=== PATIENT | female | born 1985 | race Caucasian/White ===

== ENCOUNTER 2020-04-17 09:59 | Outpatient (REF) | payer OTHER, SELFPAY ==
[2020-04-17 11:57] LABS: Alanine Aminotransferase 14 U/L (0-31); Anion Gap 14 (12-20); Aspartate Amino Transferase 16 U/L (5-31); Blood Urea Nitrogen 12 mg/dL (9-16); Calcium 9.3 mg/dL (8.4-10.2); Carbon Dioxide 24 mmol/L (22-29); Chloride 107 mmol/L (96-108); Cholesterol 163 mg/dL; Estimated Glomerular Filt Rate > 60; Glucose Fasting 87 mg/dL (60-99); HDL Cholesterol 39 mg/dL; LDL Cholesterol Calculated 109 mg/dl; Potassium 4.5 mmol/l (3.3-5.1); Sodium 140 mmol/L (135-145); Triglycerides 76 mg/dL
[2020-04-17 12:21] LABS: TSH reflex Free T4 0.85 mIU/mL (0.32-4.0)
== END 2020-04-17 10:00 | disposition home or self-care (01) ==
LOC: HO.HMGCLDS 09:59
PROVIDERS: PCP Internal Medicine; Visit Provider Internal Medicine
DX: N94.6 Dysmenorrhea, unspecified (principal); J45.20 Mild intermittent asthma, uncomplicated; J30.2 Other seasonal allergic rhinitis; I10 Essential (primary) hypertension; Z86.39 Personal history of other endocrine, nutritional and metabolic disease
CPT/HCPCS: 80048; 80061; 84443; 84450; 84460

== ENCOUNTER 2020-04-23 15:55 | Outpatient (REF) | payer OTHER, SELFPAY | END 2020-04-23 15:56 | disposition home or self-care (01) | LOC: HO.LNP 15:55 | PROVIDERS: Visit Provider Nurse Practitioner Family | DX: Z20.828 Contact with and (suspected) exposure to other viral communicable diseases (principal) | CPT/HCPCS: 87635 ==

== ENCOUNTER 2020-11-06 07:57 | Outpatient (REF) | payer OTHER, SELFPAY ==
--- NOTE | 2020-11-06 17:09 | PFT_ITS ---
Forced vital capacity normal. FEV1 is slightly decreased. ODW17-39 moderately decreased and MVV slightly decreased. Post bronchodilator therapy, there is a significant response and all values are corrected to normal. Total lung capacity and residual volume are moderately increased. Diffusion capacity normal. CONCLUSION: [id number] degree of obstructive airway disorder. Complete reversibility after bronchodilator therapy. These findings are consistent with bronchial asthma. Clinical correlation recommended. MD DAMARIS Brothers/EDMUND / [id number]
== END 2020-11-06 07:58 | disposition home or self-care (01) ==
LOC: HO.RESP 07:57
PROVIDERS: PCP Internal Medicine; Visit Provider Internal Medicine
DX: J45.20 Mild intermittent asthma, uncomplicated (principal); F17.200 Nicotine dependence, unspecified, uncomplicated
CPT/HCPCS: 94060; 94727; 94729

== ENCOUNTER 2020-11-20 12:57 | Outpatient (REF) | payer OTHER, SELFPAY ==
--- NOTE | 2020-11-20 | PFT_ITS ---
SPIROMETRY: FEV1 of 98% of predicted at 3.20 L. FVC 126% of predicted at 5.04 L. FEV1 to FVC ratio of 0.64. No bronchodilator response. Methacholine challenge: The patient had significant decreased in FEV1 with administration of methacholine at 4mg/ml, which is consistent with underlying reactive airway disease. IMPRESSION: No obstructive ventilatory defect. No bronchodilator response. Positive methacholine challenge test consistent with underlying reactive airway disease or asthma. Clinical correlation is advised. MD FELIPA Lima/MODL / [id number] MTDD
== END 2020-11-20 12:58 | disposition home or self-care (01) ==
LOC: HO.RESP 12:57
PROVIDERS: PCP Internal Medicine; Visit Provider Internal Medicine
DX: J45.20 Mild intermittent asthma, uncomplicated (principal); F17.200 Nicotine dependence, unspecified, uncomplicated
CPT/HCPCS: 94070

== ENCOUNTER 2020-12-11 15:05 | Outpatient (REF) | payer OTHER, SELFPAY ==
--- NOTE | ~2020-12-11 | XR_ITS ---
EXAMINATION: XR CHEST CLINICAL INFORMATION: Chest pain. COMPARISON: None TECHNIQUE: 2 views of the chest were obtained. FINDINGS: No significant abnormality is noted involving the heart, lungs, mediastinum, bony thorax or soft tissues. XR/XR chest 2V IMPRESSION: No acute cardiopulmonary process.
[2020-12-11 16:51] LABS: MANUAL DIFF FLAG NO
[2020-12-11 16:54] LABS: Basophils Percent Auto 0.4 % (0-2); Eosinophils Absolute Auto 0.1 X10*3/uL (0.0-0.4); Eosinophils Percent Auto 1.1 % (0-4); Hematocrit 42.2 % (37-47); Hemoglobin 14.4 g/dl (12.0-16.0); Imm Gran Abs Auto 0.03 X10*3/uL (0.00-0.03); Imm Gran Pct Auto 0.4 % (0.0-0.4); Lymphocytes Absolute Auto 2.5 X10*3/uL (1.2-4.9); Lymphocytes Percent Auto 35.2 % (20-40); Mean Corpuscular HGB Conc 34.1 g/dl (31.0-35.0); Mean Corpuscular Hemoglobin 29.9 pg (27.0-33.0); Mean Corpuscular Volume 87.7 fL (80-98); Mean Platelet Volume 10.4 fL (9.4-12.3); Monocytes Absolute Auto 0.4 X10*3/uL (0.1-1.2); Monocytes Percent Auto 5.3 % (2-11); Neutrophils Absolute Auto 4.1 X10*3/uL (2.0-8.3); Neutrophils Percent Auto 57.6 % (45-73); Platelet Count 294 X10*3/uL (160-400); Red Blood Count 4.81 X10*6/uL (4.20-5.50)
[2020-12-11 17:09] LABS: D Dimer < 200 NG/ML
[2020-12-11 17:14] LABS: Anion Gap 12 (12-20); Blood Urea Nitrogen 10 mg/dL (9-16); Calcium 9.1 mg/dL (8.4-10.2); Carbon Dioxide 24 mmol/L (22-29); Chloride 109 mmol/L (96-108); Estimated Glomerular Filt Rate > 60; Glucose Random 88 mg/dL (60-115); Potassium 3.9 mmol/L (3.3-5.1); Sodium 141 mmol/L (135-145)
== END 2020-12-11 15:06 | disposition home or self-care (01) ==
LOC: HO.HMGCX 15:05
PROVIDERS: PCP Internal Medicine; Visit Provider Nurse Practitioner Family
DX: R07.9 Chest pain, unspecified (principal)
CPT/HCPCS: 36415; 71046; 80048; 85025; 85379

== ENCOUNTER 2021-07-29 11:55 | Outpatient (REF) | payer OTHER, SELFPAY ==
[2021-07-29 13:49] LABS: MANUAL DIFF FLAG NO
[2021-07-29 14:06] LABS: Basophils Percent Auto 0.3 % (0-2); Eosinophils Absolute Auto 0.1 X10*3/uL (0.0-0.4); Hematocrit 41.9 % (37.0-47.0); Hemoglobin 14.3 g/dl (12.0-16.0); Imm Gran Abs Auto 0.03 X10*3/uL (0.00-0.03); Imm Gran Pct Auto 0.3 % (0.0-0.4); Lymphocytes Absolute Auto 3.1 X10*3/uL (1.2-4.9); Lymphocytes Percent Auto 34.8 % (20-40); Mean Corpuscular HGB Conc 34.1 g/dl (31.0-35.0); Mean Corpuscular Hemoglobin 30.1 pg (27.0-33.0); Mean Corpuscular Volume 88.2 fL (80.0-98.0); Mean Platelet Volume 11.3 fL (9.4-12.3); Monocytes Absolute Auto 0.6 X10*3/uL (0.1-1.2); Monocytes Percent Auto 6.6 % (2-11); Platelet Count 291 X10*3/uL (160-400); Red Blood Count 4.75 X10*6/uL (4.20-5.50); White Blood Count 8.8 X10*3/uL (4.8-10.8)
[2021-07-29 14:40] LABS: Alanine Aminotransferase 13 U/L (0-31); Anion Gap 14 (12-20); Aspartate Amino Transferase 15 U/L (5-31); Blood Urea Nitrogen 10 mg/dL (9-16); Calcium 9.9 mg/dL (8.4-10.2); Carbon Dioxide 22 mmol/L (22-29); Chloride 108 mmol/L (96-108); Cholesterol 129 mg/dL; Estimated Glomerular Filt Rate > 60; Glucose Fasting 93 mg/dL (60-99); HDL Cholesterol 41 mg/dL; LDL Cholesterol Calculated 64 mg/dl; Potassium 3.9 mmol/L (3.3-5.1); Sodium 140 mmol/L (135-145); Triglycerides 122 mg/dL
[2021-07-29 15:04] LABS: Free T4 (Free Thyroxine) 1.03 ng/dL (0.71-1.85); Thyroid Stimulating Hormone 1.72 uIU/mL (0.32-4.0); Vitamin D 25-OH Total 28.5 ng/mL (>30)
== END 2021-07-29 11:56 | disposition home or self-care (01) ==
LOC: HO.HMGCLDS 11:55
PROVIDERS: PCP Internal Medicine; Visit Provider Internal Medicine
DX: Z00.01 Encounter for general adult medical examination with abnormal findings (principal); F17.200 Nicotine dependence, unspecified, uncomplicated; J30.2 Other seasonal allergic rhinitis; J45.20 Mild intermittent asthma, uncomplicated; N30.10 Interstitial cystitis (chronic) without hematuria; N94.6 Dysmenorrhea, unspecified; E03.9 Hypothyroidism, unspecified; Z90.09 Acquired absence of other part of head and neck
CPT/HCPCS: 36415; 80048; 80061; 82306; 84439; 84443; 84450; 84460; 85025

== ENCOUNTER 2022-01-31 10:42 | Outpatient (REF) | payer BC, SELFPAY ==
[2022-01-31 14:25] LABS: C Reactive Protein 0.05 mg/dL (< or = 0.50)
[2022-01-31 14:52] LABS: Folate 9.4 ng/mL (> or = 4.0); Vitamin B12 273 pg/mL (200-900)
[2022-02-01 13:28] LABS: H Pylori Breath Test Negative (Negative)
[2022-02-01 17:32] LABS: Transglutaminase Ab IgG <1.0 U/mL; Transglutaminase IgA <1.0 U/mL
== END 2022-01-31 10:43 | disposition home or self-care (01) ==
LOC: HO.HMGCLDS 10:42
PROVIDERS: PCP Internal Medicine; Visit Provider Nurse Practitioner Family
DX: R10.9 Unspecified abdominal pain (principal); K58.9 Irritable bowel syndrome, unspecified; R19.7 Diarrhea, unspecified
CPT/HCPCS: 36415; 82607; 82746; 83013; 86140; 86364

== ENCOUNTER 2022-02-15 08:54 | Outpatient (REF) | payer BC, SELFPAY ==
[2022-02-20 20:12] LABS: Calprotectin, Fecal 54 mcg/g
== END 2022-02-15 08:55 | disposition home or self-care (01) ==
LOC: HO.HMGCLDS 08:54
PROVIDERS: PCP Internal Medicine; Visit Provider Nurse Practitioner Family
DX: R10.9 Unspecified abdominal pain (principal)
CPT/HCPCS: 83993

== ENCOUNTER 2022-05-04 09:18 | Outpatient (REF) | payer BC, SELFPAY ==
[2022-05-04 12:02] LABS: Alanine Aminotransferase 12 U/L (0-31); Albumin Level 4.7 g/dL (3.5-5.0); Alkaline Phosphatase 64 U/L (39-117); Aspartate Amino Transferase 14 U/L (5-31); Bilirubin Direct 0.2 mg/dL (0.0-0.5); Bilirubin Total 0.2 mg/dL (0.0-1.0); Lipase 48 U/L (8-78); Total Protein 7.1 g/dL (6.5-8.0)
== END 2022-05-04 09:19 | disposition home or self-care (01) ==
LOC: HO.HMGCLDS 09:18
PROVIDERS: PCP Internal Medicine; Visit Provider Nurse Practitioner Family
DX: R10.9 Unspecified abdominal pain (principal)
CPT/HCPCS: 36415; 80076; 83690

== ENCOUNTER 2022-05-10 10:05 | Outpatient (REF) | payer BC, SELFPAY ==
[2022-05-19 23:02] LABS: Pancreatic Elastase-1 >500 mcg/g
== END 2022-05-10 10:06 | disposition home or self-care (01) ==
LOC: HO.HMGCLDS 10:05
PROVIDERS: PCP Internal Medicine; Visit Provider Nurse Practitioner Family
DX: R10.9 Unspecified abdominal pain (principal)
CPT/HCPCS: 82656

== ENCOUNTER → 2022-08-02 08:18 | Outpatient (BNVA) | payer BC, SELFPAY | PROVIDERS: PCP Internal Medicine; Visit Provider Nurse Practitioner Family | DX: Z13.89 Encounter for screening for other disorder (principal) ==

== ENCOUNTER 2023-03-28 07:59 | Outpatient (AMB) | payer BC, SELFPAY ==
--- NOTE | 2023-03-28 08:04 | MHC.PC.OV ---
Vital Signs 03/28/23 08:13 Height 5 ft 6 in Weight 167 lb BMI 27.0 BP 116/74 Blood Pressure Location Lt brachial Position Sitting Pulse 98 Pulse Source Pulse Oximeter Pulse Oximetry (%) 99 Oxygen Delivery Method Room Air Intake Visit Reasons: Annual PE Intake Note: Pt is here today for her PE Allergies Sulfa (Sulfonamide Antibiotics) Allergy (Unknown, Verified 03/28/23 08:27) red bumps in throat Red 40 Allergy (Unknown, Uncoded 03/28/23 08:27) unknown ziclor Allergy (Unknown, Uncoded 03/28/23 08:27) Unknown Medication List - Last Reconciled 03/28/23 by Griselda Kramer MD albuterol sulfate 90 mcg/actuation (ProAir HFA) 2 puffs inhalation Q6H PRN medroxyprogesterone (Depo-Provera) 150 mg IM [id number] Tobacco use date assessed: 03/28/23 Dental Screening Dental Screen Date: 03/28/23 Did you have a dental visit in the last 12 months?: Yes Did you have a dental problem in the last 6 months where you did not have access to dental care?: Yes Was dental information given to patient?: Patient has dentist HPI Annual PE HPI Details 37-year-old lady here today for physical exam. She goes to [facility] for her routine Pap and pelvic exam, last done 2021 with negative findings. 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 Has history of low-grade squamous intraepithelial lesion on Pap smear , status post LEEP in the past, currently being followed by [facility]. [facility] Medical History (Updated 03/28/23 @ 09:23 by Griselda Kramer MD) Not ready to quit smoking Loose body in joint of multiple sites Polyarthralgia Snoring Sleeping difficulties Sleep walking and eating Excessive daytime sleepiness Family history of ulcerative colitis IBS (irritable bowel syndrome) Heartburn Tendinitis of right wrist Interstitial cystitis Upper respiratory tract infection Smoker unmotivated to quit Cyst, breast Severe dysmenorrhea Mild intermittent asthma History of abnormal cervical Pap smear Seasonal allergic rhinitis History of thyroid nodule Surgical History History of right salpingo-oophorectomy H/O exploratory laparotomy History of colposcopy History of partial thyroidectomy Family History Father Colitis Mother Asthma Sister No problems noted. Paternal Grandfather Kidney malignancy Paternal Grandmother Primary cancer of kidney Maternal Grandfather FH: prostate cancer Lung cancer Skin cancer Paternal Uncle Crohn disease Maternal Uncle Substance use disorder Paternal Uncle Hypothyroidism Social History Housing: Other Housing Other:: trailer Alcohol intake: never Patient Tobacco Use Status: Current everyday Tobacco user Cigarettes Per Day: 10 e-Cigarette/Vaping Use: Former Use service: No Current occupational status: employed Cognitive needs: No Hearing needs: No Vision needs: Yes Questionnaire PHQ-9 Over the last 2 weeks, how often have you been bothered by any of the following problems? 1. Little interest or pleasure in doing things: not at all 2. Feeling down, depressed, or hopeless: not at all 3. Trouble falling or staying asleep, or sleeping too much: more than half the days 4. Feeling tired or having little energy: more than half the days 5. Poor appetite or overeating: several days 6. Feeling bad about yourself - or that you are a failure or have let yourself or your family down: not at all 7. Trouble concentrating on things, such as reading the newspaper or watching television: not at all 8. Moving or speaking so slowly that other people could have noticed. Or the opposite - being so fidgety or restless that you have been moving around a lot more than usual: not at all 9. Thoughts that you would be better off or of hurting yourself in some way: not at all Total score: 5 Depression Screening Interpretation: Negative [id number] - PHQ-9 Billing: Yes Source: Developed by Drs. Franck Ruiz, Gina Espino, Terrell Naranjo and colleagues, with an educational fany from [employer]. Thrive Questionnaire Date Thrive assessed: 03/28/23 I am a: Patient What is your living situation today?: I have a steady place to live Within the past 12 months, did the food you bought not last and you didn't have the money to get more?: Never true Within the past 12 months, did you worry whether your food would run out before you got money to buy more?: Never true Do you have trouble paying for medicines?: No Do you have trouble getting transportation to medical appointments?: No Do you have trouble paying your heating and electricity bill?: No Do you have trouble with day-to-day activities such as bathing, preparing meals, shopping, managing finances, etc.?: No Are you currently unemployed and looking for a job?: No Are you interested in more education?: No GAYLA-7 AMB Questionnaire GAYLA-7 Date GAYLA - 7 assessed: 07/16/21 Source: Developed by Drs. Franck Ruiz, Gina Espino, Terrell Naranjo and colleagues, with an educational fany from [employer]. [place] Sleepiness Scale Questions Sitting and reading: slight chance of dozing Watching TV: slight chance of dozing Sitting inactive in a theater, movie etc.: slight chance of dozing As a passenger in a car for an hour without break: high chance of dozing Lying down in the afternoon when circumstances permit: high chance of dozing Sitting and talking to someone: moderate chance of dozing Sitting quietly after lunch without alcohol: moderate chance of dozing In a car, while stopped for a few minutes in the traffic: moderate chance of dozing ESS < 10: normal, ESS > 12: pathologic: 15 Review of Systems Const Reports daytime sleepiness, Reports difficulty sleeping, Denies fever(s), Reports snoring and Reports other ( sleepwalking and sleep-eating) Eyes Denies change in vision and Reports requires corrective lenses (For reading) ENT Denies nasal discharge and Denies sore throat Card Denies chest pain, Denies lightheadedness, Denies palpitations and Denies dyspnea Resp Denies chest congestion, Denies cough, Denies dyspnea and Reports snoring GI Denies as per HPI, Denies melena and Denies hematochezia Denies urinary frequency, Denies dysuria and Denies urinary urgency Musc Details: polyarthralgia Skin/Breast Denies breast pain, Denies breast mass and Denies rash Neuro Reports no additional complaints Endo Denies polydipsia, Denies polyuria and Denies palpitations Davey/Lymph Denies easy bruising Aller/Immun Reports seasonal rhinorrhea Physical exam (Primary Care) Vital Signs: Last Vital Signs Pulse 98 03/28/23 08:13 BP 116/74 03/28/23 08:13 Pulse Ox 99 03/28/23 08:13 Oxygen Delivery Method Room Air 03/28/23 08:13 BMI result Body Mass Index 27.0 Tobacco/Smoking Status: Tobacco use Status Tobacco use date assessed 03/28/23 03/28/23 08:15 Patient Tobacco Use Status Current everyday Tobacco 03/28/23 08:06 e-Cigarette/Vaping Use Former Use 03/28/23 08:06 Depression Screening Interpretation: Negative Thrive Assessment: Date of Thrive Assessment Date Thrive assessed 03/28/23 03/28/23 08:19 Const General: comfortable and no acute distress Orientation/consciousness: patient oriented x3 HENMT Mouth: Normal oral and palatal mucosa present, oropharynx normal and moist mucous membranes Eyes General: appearance normal, both eyes and all related structures Neck Neck: Yes full ROM, Yes no lymphadenopathy and Yes supple Chest Breast/axilla inspection: normal inspection of the breasts Breast/axilla palpation: normal palpation of the breasts Resp Effort & Inspection: normal respiratory effort and able to speak in complete sentences Auscultation: clear to auscultation bilaterally Cardio Other: S1-S2 present regular rate and rhythm GI Inspection: Yes normal to inspection Palpation (GI): Soft to palpation, nontender, no guarding and no masses Auscultation: normal bowel sounds General: Yes no CVA tenderness and Yes deferred ([facility] year old OBG[facility] for routine Pap and pelvic exam) Back/Spine/Pelvis Back: no CVA tenderness and No back tenderness Skin General skin exam: no rashes or lesions noted Neuro General: patient oriented x3, gait normal, tone normal, moves all extremities, Normal light touch and pain sensation and no focal motor deficits Extrem General: Yes full ROM, Yes no joint enlargement, Yes no clubbing, cyanosis or edema and Yes normal gait Psych Appearance: grossly normal and well kempt Mental Status: mental status grossly normal Affect: normal affect Attitude: cooperative Thought process: Normal thought process present Assessment and Plan Assessment & Plan (1) Annual visit for general adult medical examination with abnormal findings: Code(s): Z00.01 - Encounter for general adult medical examination with abnormal findings Plan: Will check appropriate labs. Recommended dental visit every 6 months and regular eye exams, at least every 2 years. Take adequate calcium in diet and vitamin-D 3 at 2000 IU per cap once a day, in addition to weight-bearing exercises to help maintain good muscle tone and weight control. Instructed to do self-breast exam, and recommended to get yearly mammogram, starting at age 40. Immunization information provided: Yearly flu vaccine, shingles vaccine starting at age 50, at age 65 to start getting Prevnar 13 followed 1 year later by Pneumovax 23. Colonoscopy (2) Sleep walking and eating: Code(s): F51.3 - Sleepwalking [somnambulism] Plan: Sleep study consult ordered (3) Excessive daytime sleepiness: Code(s): G47.19 - Other hypersomnia Plan: Sleep study consult ordered (4) Sleeping difficulties: Code(s): G47.9 - Sleep disorder, unspecified Plan: Sleep study consult ordered (5) Snoring: Code(s): R06.83 - Snoring (6) Polyarthralgia: Code(s): M25.50 - Pain in unspecified joint Plan: Referred to rheumatology for further evaluation management (7) Loose body in joint of multiple sites: Code(s): M24.00 - Loose body in unspecified joint Orders: Orders Alanine Aminotransferase 03/28/23 Z90.09 - Acquired absence of other part of head and neck, Z86.39 - Personal history of other endocrine, nutritional and metabolic disease, Z00.01 - Encounter for general adult medical examination with abnormal findings Aspartate Amino Transferase 03/28/23 Z90.09 - Acquired absence of other part of head and neck, Z86.39 - Personal history of other endocrine, nutritional and metabolic disease, Z00.01 - Encounter for general adult medical examination with abnormal findings Lipid Panel 03/28/23 Z90.09 - Acquired absence of other part of head and neck, Z86.39 - Personal history of other endocrine, nutritional and metabolic disease, Z00.01 - Encounter for general adult medical examination with abnormal findings TSH reflex Free T4 03/28/23 Z90.09 - Acquired absence of other part of head and neck, Z86.39 - Personal history of other endocrine, nutritional and metabolic disease, Z00.01 - Encounter for general adult medical examination with abnormal findings Basic Metabolic Panel Fasting 03/28/23 Z90.09 - Acquired absence of other part of head and neck, Z86.39 - Personal history of other endocrine, nutritional and metabolic disease, Z00.01 - Encounter for general adult medical examination with abnormal findings Vitamin D 25-OH Total 03/28/23 Z90.09 - Acquired absence of other part of head and neck, Z86.39 - Personal history of other endocrine, nutritional and metabolic disease, Z00.01 - Encounter for general adult medical examination with abnormal findings Referrals Sleep Medicine Referral G47.19 - Other hypersomnia, F51.3 - Sleepwalking [somnambulism], G47.9 - Sleep disorder, unspecified, R06.83 - Snoring Rheumatology Referral M25.50 - Pain in unspecified joint, M24.00 - Loose body in unspecified joint Coding Level of Care Code Est Pt [facility] Care [id number]([id number]) Diagnoses Annual visit for general adult medical examination with abnormal findings Z00.01 Sleep walking and eating F51.3 Excessive daytime sleepiness G47.19 Sleeping difficulties G47.9 Snoring R06.83 Polyarthralgia M25.50 Loose body in joint of multiple sites M24.00
[2023-03-28 08:13] VITALS: BP 116/74; PULSE 98; O2SAT 99; BMI 27.0
== END 2023-03-28 09:45 | disposition home or self-care (01) ==
PROVIDERS: PCP Internal Medicine; Visit Provider Internal Medicine
DX: Z00.01 Encounter for general adult medical examination with abnormal findings (principal); F51.3 Sleepwalking [somnambulism]; G47.19 Other hypersomnia; G47.9 Sleep disorder, unspecified; R06.83 Snoring; M25.50 Pain in unspecified joint; M24.00 Loose body in unspecified joint
CPT/HCPCS: 99395

== ENCOUNTER 2023-05-01 11:35 | Outpatient (REF) | payer BC, SELFPAY ==
[2023-05-01 14:40] LABS: Alanine Aminotransferase 23 U/L (0-31); Anion Gap 14 (12-20); Aspartate Amino Transferase 17 U/L (5-31); Blood Urea Nitrogen 13 mg/dL (9-16); Calcium 9.5 mg/dL (8.4-10.2); Carbon Dioxide 22 mmol/L (22-29); Chloride 109 mmol/L (96-108); Cholesterol 152 mg/dL (<200); Estimated Glomerular Filt Rate > 60; Glucose Fasting 82 mg/dL (60-99); HDL Cholesterol 44 mg/dL (>40); LDL Cholesterol Calculated 95 mg/dL (<100); Potassium 3.5 mmol/L (3.3-5.1); Sodium 141 mmol/L (135-145); Triglycerides 68 mg/dL (<150)
[2023-05-01 14:57] LABS: TSH reflex Free T4 0.48 uIU/mL (0.32-4.0); Vitamin D 25-OH Total 38.6 ng/mL (>30)
== END 2023-05-01 11:36 | disposition home or self-care (01) ==
LOC: HO.HMGCLDS 11:35
PROVIDERS: PCP Internal Medicine; Visit Provider Internal Medicine
DX: Z00.01 Encounter for general adult medical examination with abnormal findings (principal); Z90.09 Acquired absence of other part of head and neck; Z86.39 Personal history of other endocrine, nutritional and metabolic disease
CPT/HCPCS: 36415; 80048; 80061; 82306; 84443; 84450; 84460

== ENCOUNTER 2023-06-06 09:55 | Outpatient (AMB) | payer BC, SELFPAY ==
[2023-06-06 10:03] VITALS: BP 124/80; PULSE 88; O2SAT 96; BMI 27.4
--- NOTE | 2023-06-06 10:03 | A.OFFVIS_ITS ---
Intake Vital Signs 06/06/23 10:03 Height 5 ft 6 in Weight 170 lb BMI 27.4 BP 124/80 Blood Pressure Location Rt brachial Position Sitting Pulse 88 Pulse Source Pulse Oximeter Pulse Oximetry (%) 96 Oxygen Delivery Method Room Air Intake Visit Reasons: INP-Sleep disorders/Lvm Intake Note: Pt presents to the office today for a new patient visit for sleep disorders. Allergies Sulfa (Sulfonamide Antibiotics) Allergy (Severe, Verified 06/06/23 10:08) Swelling Red 40 Allergy (Unknown, Uncoded 06/06/23 10:08) unknown ziclor Allergy (Unknown, Uncoded 06/06/23 10:08) Unknown HPI HPI Comments History of Present Illness Details 37 y/o female patient presents for new i n-person visit for sleep consultation. Pt reports difficulty falling asleep and staying sleep. She reports loud snoring, wakes up gasping and coughing. Pt has asthma, and has been worsened lately, uses inhaler almost every day. 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 She smokes cigarets 08/10- ppd, and also marijuana, too. Sleep questionnaire: Have you ever been diagnosed with a sleep disorder? No. Have you ever had a sleep study in the past? No. Have you ever been treated for a sleep disorder? No. Do you take medications for a sleep disorder? No. Do you snore? Yes. Do you wake up gasping at night? Yes. Do you have episodes of apneas? No. If yes, are they witnessed? No. Do you have episodes of nocturnal chest pain or dyspnea? Yes. Do you have difficulty initiating sleep? Yes. Do you have difficulty maintaining sleep? Yes. Do you wake up tired? Yes, feels exhausted all day. Do you have headaches upon awakening? Not common. Do you wake up with dry mouth or throat? Yes, sometimes. Do you have GERD? Yes. Do you have nocturia? No. Do you have nocturnal leg cramps? No. Do you have symptoms of restless legs? No. Do you act out your dreams? Yes, sleep walking and eating sometimes. Sleep hygiene questionnaire: What is your usual sleep routine? Usual bedtime is at noon; Usual wake up time is at 9:30 pm. Do you take naps? No. Is your sleep environment cool, dark, and quiet? Yes. Do you exercise? No. Do you take caffeine or other stimulants? Yes. Do you use electronics in bed? Yes. What is your work schedule? 11 pm to 7 am. Hypersomnolence questionnaire: Do you have daytime tiredness or fatigue? Yes. Do you easily fall asleep when inactive? Yes. Have you ever had episodes of sudden weakness? No. Have you ever had episodes of sudden weakness associated with strong emotions? No. PFSH Medical History Not ready to quit smoking Loose body in joint of multiple sites Polyarthralgia Snoring Sleeping difficulties Sleep walking and eating Excessive daytime sleepiness Family history of ulcerative colitis IBS (irritable bowel syndrome) Heartburn Tendinitis of right wrist Interstitial cystitis Upper respiratory tract infection Smoker unmotivated to quit Cyst, breast Severe dysmenorrhea Mild intermittent asthma History of abnormal cervical Pap smear Seasonal allergic rhinitis History of thyroid nodule Surgical History History of right salpingo-oophorectomy H/O exploratory laparotomy History of colposcopy History of partial thyroidectomy Family History Father Colitis Mother Asthma Sister No problems noted. Paternal Grandfather Kidney malignancy Paternal Grandmother Primary cancer of kidney Maternal Grandfather FH: prostate cancer Lung cancer Skin cancer Paternal Uncle Crohn disease Maternal Uncle Substance use disorder Paternal Uncle Hypothyroidism Housing: Other Housing Other:: trailer Alcohol intake: never Patient Tobacco Use Status: Current everyday Tobacco user Cigarettes Per Day: 10 e-Cigarette/Vaping Use: Former Use service: No Current occupational status: employed Cognitive needs: No Hearing needs: No Vision needs: Yes Review of Systems Const All systems reviewed & are unremarkable except as noted in HPI and below ENT Reports Normal hearing present Neuro Reports Normal hearing present Physical Exam Vital Signs: Last Vital Signs Pulse 88 06/06/23 10:03 BP 124/80 06/06/23 10:03 Pulse Ox 96 06/06/23 10:03 Oxygen Delivery Method Room Air 06/06/23 10:03 BMI result Body Mass Index 27.4 Const General: cooperative and tired appearing Nutritional Appearance: overweight Orientation/consciousness: patient oriented x3 Neck Neck: Yes full ROM and Yes supple Resp Effort & Inspection: able to speak in complete sentences and Actively coughing Neuro General: patient oriented x3, gait normal and moves all extremities Cranial nerves: Yes Bilaterally intact EOM present, Yes Normal facial strength present, Yes Midline tongue present, Yes Symmetric palate elevation present, Yes Normal hearing present, Yes Ability to bilaterally rotate head present and Yes Ability to bilaterally elevate shoulders present Cognition (Neuro): normal cognition Gait exam (Neuro): Normal gait present Motor exam (neuro): 5/5 motor strength present throughout, Pronator motor function not present and no tremor noted Psych Appearance: grossly normal Mental Status: mental status grossly normal Speech and movement: Normal speech and movement present Affect: normal affect Attitude: cooperative Assessment & Plan Assessment & Plan (1) Snoring: Code(s): R06.83 - Snoring (2) Sleeping difficulties: Code(s): G47.9 - Sleep disorder, unspecified (3) Sleep walking and eating: Code(s): F51.3 - Sleepwalking [somnambulism] (4) Excessive daytime sleepiness: Code(s): G47.19 - Other hypersomnia Plan Pt is advised to undergo in lab sleep study to assess for sleep apnea and REM behavior. Will f/u with pt after study to discuss results and appropriate treatment options. Sleep hygiene education provided. Advised patient to reduce caffeine intake and smoking before bedtime. Pt to call with any worsening concerns or questions. Orders: Orders RT PSG in-lab sleep study Today F51.3 - Sleepwalking [somnambulism], G47.19 - Other hypersomnia, G47.9 - Sleep disorder, unspecified, R06.83 - Snoring Coding Level of Care Code New Pt Level 3 ([id number]) Diagnoses Snoring R06.83 Sleeping difficulties G47.9 Sleep walking and eating F51.3 Excessive daytime sleepiness G47.19
== END 2023-06-06 10:34 | disposition home or self-care (01) ==
PROVIDERS: PCP Internal Medicine; Visit Provider Nurse Practitioner Family
DX: R06.83 Snoring (principal); G47.9 Sleep disorder, unspecified; F51.3 Sleepwalking [somnambulism]; G47.19 Other hypersomnia
CPT/HCPCS: 99203; 99213

== ENCOUNTER → 2023-06-06 09:55 | Outpatient (BNVA) | payer BC, SELFPAY | PROVIDERS: PCP Internal Medicine; Visit Provider Nurse Practitioner Family ==

== ENCOUNTER 2023-06-29 10:56 | Outpatient (AMB) | payer BC, SELFPAY ==
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
[2023-06-29 10:58] VITALS: BP 114/66; PULSE 94; TEMP 37; O2SAT 98; BMI 27.4
== END 2023-06-29 11:40 | disposition home or self-care (01) ==
PROVIDERS: PCP Internal Medicine; Visit Provider Student in an Organized Health Care Education/Training Program
DX: M25.50 Pain in unspecified joint (principal); M65.4 Radial styloid tenosynovitis [de Quervain]; M50.30 Other cervical disc degeneration, unspecified cervical region; M25.561 Pain in right knee; G89.29 Other chronic pain; I73.00 Raynaud's syndrome without gangrene
CPT/HCPCS: 99204

== ENCOUNTER → 2023-06-29 10:56 | Outpatient (BNVA) | payer BC, SELFPAY | PROVIDERS: PCP Internal Medicine; Visit Provider Student in an Organized Health Care Education/Training Program ==

== ENCOUNTER → 2023-07-11 20:30 | Outpatient (REF) | payer BC, SELFPAY | LOC: HO.SL 20:30 | PROVIDERS: PCP Internal Medicine; Visit Provider Nurse Practitioner Family | DX: G47.19 Other hypersomnia (principal); F51.3 Sleepwalking [somnambulism]; G47.9 Sleep disorder, unspecified; R06.83 Snoring | CPT/HCPCS: 95810 ==

== ENCOUNTER → 2023-07-11 23:27 | Outpatient (BNV) | payer BC, SELFPAY | PROVIDERS: PCP Internal Medicine; Visit Provider Psychiatry & Neurology Neurology | DX: G47.19 Other hypersomnia (principal) | CPT/HCPCS: 95810 ==

== ENCOUNTER 2023-08-14 08:30 | Outpatient (RCR) | payer BC, SELFPAY ==
--- NOTE | 2023-07-24 10:50 | MHC.OT.EP ---
[address] [phone] Occupational Therapy Plan of Care Patient Name: Papito Thibodeaux Date of Evaluation: 07/24/23 Diagnosis: Right De Quervains tenosynovitis Pain Location: Right radial wrist . 10 Pain Score: 4 Pain Scale Used: Numeric (0 - 10) Aggravating Factors: Gripping, pinching Alleviating Factors: Assessment: Pt is a 37 yo female with a long history of De Quervains tenosynovitis managed with a thumb spica splint. Pt reports a worsening of right wrist pain primarily with homemaking tasks ie light mopping. Today she presents with S+S consistent with her diagnosis of right De Quervains. ROM and sales superintendent strength WNL with pain . Pinch strength low Pt is able to completed daily activities with pain Pt will benefit from OT to improve pain and prevent worsening of this condition Frequency and Duration: The patient will be seen 2x wk x 4 wks Short Term Goals: Demo indep with HEP Demo awareness of joint protection and activity modification for right wrist pain with daily activities Tolerate isometric wrist and hand strengthening Drum Filler Goals: Pain free wrist and thumb AROM Pain free right sales superintendent to 60 lb Lateral pinch strength to > 12 lb Quick DASH score < 15 Pts Treatment Plan: Therapeutic Exercise Therapeutic Activity Home Exercise Program Splinting Patient Education ADL Training Ultrasound Iontophoresis Soft Tissue Mobilization Electronically Signed By: Donna Riley OT CHT CLT Please Sign and return to therapist. Thank you once again for your referral.
== END 2023-08-30 08:43 | disposition home or self-care (01) ==
LOC: HO.OT 08:30
PROVIDERS: PCP Internal Medicine; Visit Provider Student in an Organized Health Care Education/Training Program
DX: M65.4 Radial styloid tenosynovitis [de Quervain] (principal)
CPT/HCPCS: 97110; 97140; 97165

== ENCOUNTER 2023-08-30 09:00 | Outpatient (RCR) | payer BC, SELFPAY ==
--- NOTE | 2023-07-31 09:00 | MHC.PT.EP ---
[facility] [place] Office [place] Office [place] Office [address] Elida Talamantes [address] [phone] F: [phone] F: [phone] F: [phone] F: [phone] Physical Therapy Plan of Care Date of Evaluation: 07/31/23 Date of Surgery: NA Diagnosis: Degenerative cervical disc Assessment: Papito is a 37 year old female who is referred to PT for degenerative cervical disc . She reports of having h/o chronic neck pain - has had neck pain for about 25 years. She has not received any treatment for neck pain except 1 round of chiropracter. She denies any trauma or falls. On PT examination she presents with 4-7/10 pain in the R side of neck, TTP over R levator scap, R UT and R medial border of scapula, decreased cervical ROM, decreased cervical and R shoulder strength, and altered posture. She lives with her and is independent with all ADLS but has pain with activities requiring to reach over head with R UE several times, carrying heavy weights and yard work. 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 She would benefit from skilled PT to address the aforementioned impairments and improve tolerance to functional activities. Frequency and Duration: The patient will be seen 2/week for 5 weeks Short Term Goals: 1. Pt will have 50% decrease in pain which will enable her to have periods of no pain through the day in 2 weeks. 2. Pt will be able to move her cervical spine through all planes of motion which will enable her to drive without difficulty in 3 weeks. Segment Block Layer Goals: 1. Pt will demonstrate an increase in shoulder and scap strength by 1 grade which will enable her to perform ADLS with pain no more than 2/10 in 5 weeks. 2. Pt will be independent with all HEP for symptom management and maintenance following d/c in 5 weeks. Treatment Plan: Modalities to reduce pain, spasms and effusion. Manual therapy to restore motion and function. Therapeutic exercise to improve strength and flexibility. Neuromuscular re-education for posture and balance. Therapeutic activities to return to functional activities of daily living. Electronically signed by: Lorenza Reno PT DPT Please sign and return to therapist. Thank you for your referral.
--- NOTE | 2023-08-30 09:49 | MHC.PT.DC ---
[facility] [place] Office [place] Office [place] Office [address] Elida Talamantes [address] [phone] F: [phone] F: [phone] F: [phone] F: [phone] Physical Therapy Discharge Report Diagnosis: Degenerative cervical disc Date of Surgery: NA Date of Evaluation: 07/31/23 Date of Discharge: 08/30/23 Treatments to Date: 8 Cancellations to Date: 1 No Shows to Date: Discharge Status: Achieved Goals Improved Function Independent with HEP Discharge Summary: Papito arrived stating she is feeling good. She has completed 8 PT visits and has achieved all goals set for her. She is independent with all her HEPs as well. She is therefore being d/c from PT. Papito was in agreement with the plan. I reviewed all exercises with her today. Electronically signed by: Lorenza Reno PT DPT Please sign and return to therapist. Thank you for your referral.
== END 2023-08-30 09:51 | disposition home or self-care (01) ==
LOC: HO.PT 09:00
PROVIDERS: PCP Internal Medicine; Visit Provider Student in an Organized Health Care Education/Training Program
DX: M50.30 Other cervical disc degeneration, unspecified cervical region (principal)
CPT/HCPCS: 97110; 97112; 97140; 97161

== ENCOUNTER 2023-10-05 08:48 | Outpatient (AMB) | payer BC, SELFPAY ==
--- NOTE | 2023-10-05 08:54 | MHC.OFFVIS ---
Intake Vital Signs 10/05/23 08:55 Height 5 ft 6 in Weight 168 lb 8 oz BMI 27.2 BP 138/80 Blood Pressure Location Rt brachial Position Sitting Intake Visit Reasons: Follow up Sleep disorder - LVM/address Intake Note: Patient presents for follow up sleep disorder. still not sleeping Allergies Sulfa (Sulfonamide Antibiotics) Allergy (Severe, Verified 10/05/23 08:57) Swelling Red 40 Allergy (Unknown, Uncoded 10/05/23 08:57) unknown ziclor Allergy (Unknown, Uncoded 10/05/23 08:57) Unknown HPI HPI Comments History of Present Illness Details 37 y/o female patient presents for follow up of sleep study. The PSG sleep study result was normal sleep. No evidence of sleep apnea, sleep related movement disorder or parasomnia. The sleep efficiency was 78%. Pt continues to endorse difficulty falling asleep and staying sleep. She tried amitriptyline 100 mg, melatonin and magnesium but not really helpful for staying sleep. She wakes up almost every hours. She is going through difficult life situation, smokes more, 1 to -1, 1/2 pack of cigaretts daily. 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 [facility] Medical History Not ready to quit smoking Loose body in joint of multiple sites Polyarthralgia Snoring Sleeping difficulties Sleep walking and eating Excessive daytime sleepiness Family history of ulcerative colitis IBS (irritable bowel syndrome) Heartburn Tendinitis of right wrist Interstitial cystitis Upper respiratory tract infection Smoker unmotivated to quit Cyst, breast Severe dysmenorrhea Mild intermittent asthma History of abnormal cervical Pap smear Seasonal allergic rhinitis History of thyroid nodule Surgical History History of right salpingo-oophorectomy H/O exploratory laparotomy History of colposcopy History of partial thyroidectomy Family History Father Colitis Mother Asthma Sister No problems noted. 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 Cognitive needs: No Hearing needs: No Vision needs: Yes Review of Systems Const All systems reviewed & are unremarkable except as noted in HPI and below ENT Reports Normal hearing present Neuro Reports Normal hearing present Physical Exam Vital Signs: Last Vital Signs BP 138/80 10/05/23 08:55 BMI result Body Mass Index 27.2 Const General: cooperative and tired appearing Nutritional Appearance: overweight Orientation/consciousness: patient oriented x3 Neck Neck: Yes full ROM and Yes supple Resp Effort & Inspection: able to speak in complete sentences and Actively coughing Neuro General: patient oriented x3, gait normal and moves all extremities Cranial nerves: Yes Bilaterally intact EOM present, Yes Normal facial strength present, Yes Midline tongue present, Yes Symmetric palate elevation present, Yes Normal hearing present, Yes Ability to bilaterally rotate head present and Yes Ability to bilaterally elevate shoulders present Cognition (Neuro): normal cognition Gait exam (Neuro): Normal gait present Motor exam (neuro): 5/5 motor strength present throughout, Pronator motor function not present and no tremor noted Psych Appearance: grossly normal Mental Status: mental status grossly normal Speech and movement: Normal speech and movement present Affect: normal affect Attitude: cooperative Assessment & Plan Assessment & Plan (1) Sleeping difficulties: Code(s): G47.9 - Sleep disorder, unspecified Plan Pt declined psychology referral for CBTi. Pt does not want to sleep medications at this time. Sleep hygiene education provided, encouraged patient to reduce smoking. Advised patient to read Say Good Night to [place] and practice the 6 weeks sleep hygiene program. May continue to try melatonin and magenisum for sleep. Coding Level of Care Code Est Pt Level 3 (06695) Diagnoses Sleeping difficulties G47.9
[2023-10-05 08:55] VITALS: BP 138/80; BMI 27.2
== END 2023-10-05 09:31 | disposition home or self-care (01) ==
LOC: HO.HSMS 08:48
PROVIDERS: PCP Internal Medicine; Visit Provider Nurse Practitioner Family
DX: G47.9 Sleep disorder, unspecified (principal)
CPT/HCPCS: 99213

== ENCOUNTER → 2023-10-05 08:48 | Outpatient (BNVA) | payer BC, SELFPAY | PROVIDERS: PCP Internal Medicine; Visit Provider Nurse Practitioner Family ==

== ENCOUNTER 2024-04-10 08:49 | Outpatient (AMB) | payer BC, SELFPAY ==
[2024-04-10 08:57] VITALS: BP 120/80; PULSE 78; O2SAT 98; BMI 27.1
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
== END 2024-04-10 09:40 | disposition home or self-care (01) ==
PROVIDERS: PCP Internal Medicine; Visit Provider Internal Medicine
DX: Z00.01 Encounter for general adult medical examination with abnormal findings (principal); J45.20 Mild intermittent asthma, uncomplicated; Z72.0 Tobacco use

== ENCOUNTER → 2024-04-10 08:49 | Outpatient (BNVA) | payer BC, SELFPAY | PROVIDERS: PCP Internal Medicine; Visit Provider Internal Medicine | DX: Z00.01 Encounter for general adult medical examination with abnormal findings (principal); J45.20 Mild intermittent asthma, uncomplicated; Z72.0 Tobacco use | CPT/HCPCS: 96127 ==

== ENCOUNTER 2024-06-13 09:12 | Outpatient (AMB) | payer BC, SELFPAY ==
--- NOTE | 2024-06-13 09:17 | MHC.OFFWIV ---
Intake Vital Signs 06/13/24 09:18 Height 5 ft 6 in Weight 165 lb BMI 26.6 BP 130/80 Blood Pressure Location Lt brachial Position Sitting Pulse 72 Pulse Source Pulse Oximeter Temp 98.8 F Temp Source Oral Pulse Oximetry (%) 98 Oxygen Delivery Method Room Air Intake Visit Reasons: EP-cough, chest pain, sore throat Intake Note: Patient here for cough, chest tightness and loss of voice which has been present for about 2 weeks. Patient Tobacco Use Status: Current everyday Tobacco user Allergies Sulfa (Sulfonamide Antibiotics) Allergy (Severe, Verified 06/13/24 09:24) Swelling Red 40 Allergy (Unknown, Uncoded 06/13/24 09:24) unknown ziclor Allergy (Unknown, Uncoded 06/13/24 09:24) Unknown Do you need a note to return to daycare/school/sports/work: Yes HPI EP-cough, chest pain, sore throat HPI Details This note is constructed using voice recognition software. While every effort has been made to ensure accuracy, in house counsel errors may have been included. The patient is a 38 year old female who presents to the clinic today with cough, congestion, sore throat, for the past 2 weeks, worsening since Monday. She denies fever, chills, does have some dyspnea with coughing and activity but none at rest. She is taking her albuterol inhaler, requiring it more than normal, and has stopped her Symbicort as she was unsure if this was helping her when the symptoms started. [facility] Medical History (Updated 04/10/24 @ 09:41 by Griselda Kramer MD) Mild intermittent asthma in adult without complication Not ready to quit smoking Loose body in joint of multiple sites Polyarthralgia Snoring Sleeping difficulties Sleep walking and eating Excessive daytime sleepiness Family history of ulcerative colitis IBS (irritable bowel syndrome) Heartburn Tendinitis of right wrist Interstitial cystitis Upper respiratory tract infection Smoker unmotivated to quit Cyst, breast Severe dysmenorrhea Mild intermittent asthma History of abnormal cervical Pap smear Seasonal allergic rhinitis History of thyroid nodule Surgical History History of right salpingo-oophorectomy H/O exploratory laparotomy History of colposcopy History of partial thyroidectomy Family History Father Colitis Mother Asthma Sister No problems noted. Paternal Grandfather Kidney malignancy Paternal Grandmother Primary cancer of kidney Maternal Grandfather FH: prostate cancer Lung cancer Skin cancer Paternal Uncle Crohn disease Maternal Uncle No problems noted. 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 Cognitive needs: No Hearing needs: No Vision needs: Yes Review of Systems Const All systems reviewed & are unremarkable except as noted in HPI and below Physical Exam Vital Signs: Last Vital Signs Temp 98.8 F 06/13/24 09:18 Pulse 72 06/13/24 09:18 BP 130/80 06/13/24 09:18 Pulse Ox 98 06/13/24 09:18 Oxygen Delivery Method Room Air 06/13/24 09:18 BMI result Body Mass Index 26.6 Const General: cooperative, healthy appearing, comfortable and no acute distress Orientation/consciousness: patient oriented x3 Limitations: no limitations HEENT Head: Yes normal to inspection Ears: hearing grossly normal bilaterally, external ears normal and TM's normal bilaterally General nose exam: Normal external nose present, Normal nares present and No nasal discharge present Face and sinus: Yes normal facial exam and Yes sinuses nontender Mouth: Normal oral and palatal mucosa present and moist mucous membranes Throat: Yes tonsils normal, Yes uvula midline and Yes posterior oropharynx abnormal (Erythema) Eyes General: appearance normal, both eyes and all related structures Neck Neck: Yes normal visual inspection Resp Effort & Inspection: normal respiratory effort, able to speak in complete sentences, Actively coughing, no respiratory distress, not tachypneic, no tripod positioning and no use of accessory muscles Auscultation: clear to auscultation bilaterally (But tight sounding) Cardio Jugular venous distension: no JVD Rate: regular rate Rhythm: regular rhythm Heart sounds: S1 normal heart sound present, S2 normal heart sound present, no click, no gallops, no murmurs and no rubs Skin General skin exam: no rashes or lesions noted, elasticity normal and turgor normal Neuro General: patient oriented x3 Extrem General: Yes normal to inspection and Yes no clubbing, cyanosis or edema Assessment & Plan Assessment & Plan (1) Asthma exacerbation: Code(s): J45.901 - Unspecified asthma with (acute) exacerbation Qualifiers: Asthma severity: mild Asthma persistence: intermittent Qualified Code(s): J45.21 - Mild intermittent asthma with (acute) exacerbation Plan: Advised use of albuterol, as well as her Symbicort, reviewed appropriate use when she does have URI. At this time we decided to drives systemic steroids traumatic management. Reviewed at home support methods including hydration, humidification, vix vapor rub, sinus rinse, and otc treatment options. In office rapid strep negative. Deferred testing for viral etiology due to timeline since symptom onset. Advised follow up with worsening symptoms such as dyspnea at rest, which would require emergent evaluation. Plan See above for full details and plan. Medications: New prednisone 5 tablets daily for 2 days, then 4 tablets daily for 2 days, then 3 tablets daily for 2 days, then 2 tablets daily for 2 days, then 1 tablet daily for 2 days. 10 mg PO DIRECTED 30 tabs 0RF Changed From albuterol sulfate 90 mcg/actuation (ProAir HFA) 2 puffs inhalation Q6H PRN 18 grams 5RF shortness of breath or wheezing To albuterol sulfate 90 mcg/actuation 2 puffs inhalation Q6H PRN 18 grams 5RF shortness of breath or wheezing Coding Level of Care Code Est Pt Level 3 (11563) Diagnoses Mild intermittent asthma with exacerbation J45.21 Asthma severity: mild Asthma persistence: intermittent
[2024-06-13 09:18] VITALS: BP 130/80; PULSE 72; TEMP 37.1; O2SAT 98; BMI 26.6
== END 2024-06-13 09:47 | disposition home or self-care (01) ==
PROVIDERS: PCP Internal Medicine; Visit Provider Registered Nurse
DX: Z13.9 Encounter for screening, unspecified (principal); J45.21 Mild intermittent asthma with (acute) exacerbation

== ENCOUNTER → 2024-06-13 09:12 | Outpatient (BNVA) | payer BC, SELFPAY | PROVIDERS: PCP Internal Medicine; Visit Provider Registered Nurse | DX: J45.21 Mild intermittent asthma with (acute) exacerbation (principal) | CPT/HCPCS: 87880 ==

== ENCOUNTER 2025-05-15 08:20 | Outpatient (AMB) | payer BC, SELFPAY ==
--- OUTSIDE RECORDS SUMMARY | 2025-05-15 08:41 | XMS_ITS | Encounter Summary ---
Author Organization [facility] Address [address] [place] [address] Phone Care Team Providers Care Knife Operator Name Role Phone Griselda Kramer MD Primary Care Provider Encounter Details Date Type Department Care Team (Late st Contact Info) Description 04/15/2022 Procedure Pass OR Admitting Dept - Virtual Department [address] [place] [address] Social History Tobacco Use Types Packs/Day Years Used Date Smoking Tobacco: Every Day Cigarettes 0.8 28.8 Started: 1996 Smokeless Tobacco: Never Alcohol Use Standard Drinks/Week Comments Not Currently 0 (1 standard drink = 0.6 oz pur e alcohol) 2003 Comments No Sex and Gender Information Value Date Recorded Sex Assigned at Female 03/28/2022 10:55 AM EDT Legal Sex Female 9:43 AM EDT Gender Identity Female 03/28/2022 10:55 AM EDT Sexual Orientation Not on file documented as of this encounter Plan of Treatment Not on file documented as of this encounter Visit Diagnoses Not on filedocumented in this encounter Care Teams Knife Operator Relationship Specialty Start Date End Date Griselda Kramer MD [address] [facility] [address] [place] [id number] PCP - General Internal Medicine 11/17/21 documented as of this encounter Additional Source Comments The information contained in this document represents components of the legal health record. It is not the complete legal health record.[facility]
--- OUTSIDE RECORDS SUMMARY | 2025-05-15 08:41 | XMS_ITS | Clinical Summary ---
Author Organization [facility] Address [address] [facility] [address] [place] [address] Phone Care Team Providers Care Visual Arts Teacher Name Role Phone Griselda Kramer MD Primary Care Provider Allergies Active Allergy Reactions Criticality Noted Date Comments Cefaclor 12/23/2021 Other reaction(s): pt. never took but identical sister is allergic Chlorhexidine Gluconate 04/13/2022 Red Dye 12/23/2021 Other reaction(s): skin rash, tongue swelled Sulfa (Sulfonamide Antibiotics) 12/23/2021 Sulfa Dyne 03/29/2022 Other reaction(s): BUMPS BACK OF THROAT Medications albuterol sulfate (PROAIR RESPICLICK) 90 mcg/actuation AePB Inhale into the lungs. 1 Active famotidine (PEPCID) 40 MG tablet Take 40 mg by mouth daily. 2 Active naproxen (NAPROSYN) 500 MG tablet Take 500 mg by mouth. 1 Active diclofenac sodium (VOLTAREN) 1 % Gel Apply topically as needed for other (free text field). Active CITRUCEL 500 mg Tab TAKE ONE TABLET BY MOUTH DAILY WITH A FULL GLASS OF WATER 2 Active levocetirizine (XYZAL) 5 MG tablet Take 5 mg by mouth every evening. Active oxyCODONE 5 MG immediate release tablet Take one tablet every 6 hours as needed. Partial fill ok 20 tablet 2 Active Active Problems Problem Noted Date Diagnosed Date Unwanted fertility Chronic pelvic pain in female Family History Relation Status Comments Father Alive Mother Alive Sister Alive Social History Tobacco Use Types Packs/Day Years Used Date Smoking Tobacco: Every Day Cigarettes 0.8 28.8 Started: 1996 Smokeless Tobacco: Never Alcohol Use Standard Drinks/Week Comments Not Currently 0 (1 standard drink = 0.6 oz pur e alcohol) 2003 Education Answer Date Recorded Are you interested in more education? Not on louie e 11/05/2022 Are you concerned about learning? Not on file 11/05/2022 No 11/05/2022 No 11/05/2022 Digital Access Answer Date Recorded No 12/04/2022 No 12/04/2022 No 12/04/2022 Reliable internet access at home? Not on file 12/04/2022 Device with a working camera? Not on file Comments No Sex and Gender Information Value Date Recorded Sex Assigned at Female 03/28/2022 10:55 AM EDT Legal Sex Female 9:43 AM EDT Gender Identity Female 03/28/2022 10:55 AM EDT Sexual Orientation Not on file Last Filed Vital Signs Vital Sign Reading Time Taken Comments Blood Pressure 115/77 04/15/2022 3:30 PM EDT Pulse 76 04/15/2022 3:15 PM EDT Temperature 36.9 C (98.4 F) 04/15/2022 2:20 PM EDT Respiratory Rate 16 04/15/2022 3:15 PM EDT Oxygen Saturation 96% 04/15/2022 3:30 PM EDT Inhaled Oxygen Concentration - - Weight 77.6 kg (171 lb) 04/13/2022 12:19 PM EDT Height 167.6 cm (5' 6 ) 04/13/2022 12:19 PM EDT Body Mass Index 27.6 04/13/2022 12:19 PM EDT Plan of Treatment Health Maintenance Due Date Last Done Comments Adult Td,Tdap Booster 1983 DEPRESSION SCREENING 1995 SMOKING Hx and SMOKELESS TOBACCO SCREENING 11/15/1996 HEPATITIS C SCREENING 11/15/2001 HIV ONE-TIME SCREENING (18-65 YEARS) 11/15/2001 PAP SMEAR 11/15/2004 PNEUMOCOCCAL VACCINES (0-49 years) (2 of 2 - PCV) 07/16/2022 07/16/2021 MAMMOGRAM 2023 INFLUENZA VACCINE (#1) 2025 04/15/2021 COVID-19 VACCINE ( season) 2025 04/15/2021, 08/17/2020, 07/27/2020, Additional history exists HEPATITIS A VACCINES Aged Out No long er eligible based on patient's age to complete this topic HIB VACCINES Aged Out No longer eligi ble based on patient's age to complete this topic MENINGOCOCCAL VACCINES (ACWY) Aged Out No longer eligible based on patient's age to complete this topic MENINGOCOCCAL VACCINES (B) Aged Out N o longer eligible based on patient's age to complete this topic Medical Devices Implanted Type Area Microbiology Technician Device Identifier Shelf Expiration Date Model / Serial / Lot Clip Clip Neck Description:From partial thy roidectomy Insurance [address] [place] [address] OUT [facility] PPO [address] [place] [id number] [facility] OUT OF [facility] PPO [employer] OUT OF STATE PPO [address] [place] [id number] [employer] OUT OF STATE PPO TRAIL[address] [place] [id number] [place] OUT OF STATE PPO [address] [place] [id number] [employer] OUT OF STATE [address]PO [address] [place] [id number] [employer] OUT OF STATE PPO [address] [place] [id number] [place] OUT OF STATE PPO BLUE [place] OUT STATE PPO Advance Directives For more information, please contact: [phone] (9AM - 5PM [facility], Monday-Monday) * Full Code (Latest Code Status on File) Date Activated Date Inactivated Comments 04/15/2022 9:28 AM Question Answer Comments Code Status Confirmed With: Patient Care Teams Visual Arts Teacher Relationship Specialty Start Date End Date Griselda Kramer MD [facility] [address] [place] [id number] PCP - General Internal Medicine 11/17/21 Additional Source Comments The information contained in this document represents components of the legal health record. It is not the complete legal health record.[facility]
[2025-05-15 08:45] VITALS: BP 100/62; PULSE 81; RESP 16; TEMP 36.8; O2SAT 98; BMI 23.2
--- NOTE | 2025-05-15 08:45 | MHC.PC.OV ---
Vital Signs 05/15/25 08:45 Height 5 ft 6 in Weight 144 lb BMI 23.2 BP 100/62 Blood Pressure Location Rt brachial Position Sitting Respiration 16 Pulse 81 Pulse Source Pulse Oximeter Temp 98.3 F Temp Source Oral Pulse Oximetry (%) 98 Oxygen Delivery Method Room Air Intake Visit Reasons: Annual visit Intake Note: Pt is here today for her PE: Last papsmear 04/16/25 Mobile Web Application Developer Required: No Is last menstrual period known: No Allergies Sulfa (Sulfonamide Antibiotics) Allergy (Severe, Verified 05/15/25 09:01) Swelling Red 40 Allergy (Unknown, Uncoded 05/15/25 09:01) unknown ziclor Allergy (Unknown, Uncoded 05/15/25 09:01) Unknown Medication List - Last Reconciled 05/15/25 by Griselda Kramer MD albuterol sulfate 90 mcg/actuation 2 puffs inhalation Q6H PRN Tobacco use date assessed: 05/15/25 Dental Screening Dental Screen Date: 05/15/25 Did you have a dental visit in the last 12 months?: Yes Did you have a dental problem in the last 6 months where you did not have access to dental care?: No Was dental information given to patient?: Patient has dentist HPI Annual visit HPI Details 39-year-old lady with past medical history significant for mild intermittent asthma here today for her physical exam. Currently uses albuterol inhaler as needed for episodes of bronchospasm and wheezing. Unfortunately continues to still smoke cigarettes, trying to cut back now down to 10 cigarettes a day. Has tried quitting with Chantix and Wellbutrin which has not helped. The patient reports progressive bitemporal hair loss that has been ongoing for over five years and is now worsening and spreading. She notes the hair loss is more aggressive on one side and denies dyeing her hair. Up-to-date with cervical cancer screening, last done 04/16/2025.. She reports a history of severe menstrual cramping, which has improved. She was on Depo-Provera from age 10 until this past winter (June 2024), which she discontinued due to concerns about side effects, including bone thinning. She had a normal bone density test before 2019. Surgically, she is s/p right salpingo-oophorectomy and a LEEP procedure in 2013. After stopping Depo-Provera, she experienced a month of continuous bleeding and has since had an IUD placed to help regulate her periods. The patient has a history of a partial thyroidectomy of the right lobe at age 12 for a benign nodule. She has not followed up with endocrinology since the surgery, and her TSH levels have been trending lower over the years but remain within the normal range, with the last result being 0.48 in 2022. She has mild intermittent asthma, for which she uses an albuterol inhaler as needed for episodes of bronchospasm and wheezing. She reports occasional heartburn, which is improved, and IBS symptoms that are exacerbated by stress. She also has joint pain and hypermobility, which has improved following a significant weight loss of 30-35 pounds. She is currently trying to quit smoking by transitioning to a vape, having had prior unsuccessful attempts with Chantix (due to nausea) and Wellbutrin (due to insomnia). She works 12-hour night shifts, which she notes is a source of stress. [facility] Medical History (Updated 05/15/25 @ 09:31 by Griselda Kramer MD) Cigarette smoker one half pack a day or less Hair thinning Mild intermittent asthma in adult without complication Not ready to quit smoking Loose body in joint of multiple sites Polyarthralgia Snoring Sleeping difficulties Sleep walking and eating Excessive daytime sleepiness Family history of ulcerative colitis IBS (irritable bowel syndrome) Heartburn Tendinitis of right wrist Interstitial cystitis Upper respiratory tract infection Cyst, breast Severe dysmenorrhea Mild intermittent asthma History of abnormal cervical Pap smear Seasonal allergic rhinitis History of thyroid nodule Surgical History (Updated 05/15/25 @ 09:06 by Griselda Kramer MD) History of right salpingo-oophorectomy H/O exploratory laparotomy History of colposcopy History of partial thyroidectomy Family History Father Colitis Mother Asthma Sister No problems noted. Paternal Grandfather Kidney malignancy Paternal Grandmother Primary cancer of kidney Maternal Grandfather FH: prostate cancer Lung cancer Skin cancer Paternal Uncle Crohn disease Maternal Uncle No problems noted. 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 1. Little interest or pleasure in doing things: not at all 2. Feeling down, depressed, or hopeless: not at all 3. Trouble falling or staying asleep, or sleeping too much: more than half the days 4. Feeling tired or having little energy: more than half the days 5. Poor appetite or overeating: not at all 6. Feeling bad about yourself - or that you are a failure or have let yourself or your family down: not at all 7. Trouble concentrating on things, such as reading the newspaper or watching television: not at all 8. Moving or speaking so slowly that other people could have noticed. Or the opposite - being so fidgety or restless that you have been moving around a lot more than usual: not at all 9. Thoughts that you would be better off or of hurting yourself in some way: not at all Total score: 4 Depression Screening Interpretation: Negative Depression Screening Done: Yes 70384 - PHQ-9 Billing: Yes Source: Developed by Drs. Franck Ruiz, Gina Espino, Terrell Naranjo and colleagues, with an educational fany from [employer]. Thrive Questionnaire Date Thrive assessed: 05/15/25 I am a: Patient What is your living situation today?: I have a steady place to live Within the past 12 months, did the food you bought not last and you didn't have the money to get more?: Never true Within the past 12 months, did you worry whether your food would run out before you got money to buy more?: Never true Do you have trouble paying for medicines?: No Do you have trouble getting transportation to medical appointments?: No Do you have trouble paying your heating and electricity bill?: No Do you have trouble taking care of your child, family member or friend?: No Do you have trouble with day-to-day activities such as bathing, preparing meals, shopping, managing finances, etc.?: No Are you currently unemployed and looking for a job?: No Are you interested in more education?: No Please select the resources that you would like help with: None Currently or been in a relationship where the following occur: I choose not to answer THRIVE Score: 0 AUDIT C Alcohol Use Questionnaire (AUDIT-C) 1. How often do you have a drink containing alcohol?: Never Total Score: 0 Score Reviewed/Action Taken: Yes GAYLA-7 AMB Questionnaire GAYLA-7 Date GAYLA - 7 assessed: 05/15/25 Feeling nervous, anxious, or on edge: 1 = Several days Not being able to stop or control worryin = Not at all Worrying too much about different things: 0 = Not at all Trouble relaxin = More than half the days Being so restless that it is hard to sit still: 0 = Not at all Becoming easily annoyed or irritable: 1 = Several days Feeling afraid as if something awful might happen: 0 = Not at all Total GAYLA-7 score (0-4 normal; 5-9 mild; 10-14 moderate; 15-21 severe): 4 Source: Developed by Drs. Franck Ruiz, Gina Espino, Terrell Naranjo and colleagues, with an educational fany from [employer]. GAYLA-7 Assessment Billing GAYLA-7 Assessment Tool: GAYLA-7 Assessment 81410 ACT Questionnaire In the past 4 weeks, how much of the time did your asthma keep you from getting as much done at work, school or at home?: None of the time During the past 4 weeks, how often have you had shortness of breath?: Not at all During the past 4 weeks, how often did your asthma symptoms wake you up at night or earlier than usual in the morning?: Not at all During the past 4 weeks, how often have you had to use your rescue inhaler or nebulizer medication?: Once a week or less How would you rate your asthma control during the past 4 weeks?: Well controlled Score: 23 Review of Systems Const Details: overdue for eye exam Eyes Denies change in vision and Reports requires corrective lenses (For reading) ENT Denies nasal discharge and Denies sore throat Card Denies chest pain, Denies lightheadedness, Denies palpitations and Denies dyspnea Resp Denies chest congestion, Denies cough and Denies dyspnea GI Denies as per HPI, Denies melena and Denies hematochezia Details: pap done 04/16/25 at [facility] , done by Magda Rosas , stopped the Depo-Provera June 2024 Denies urinary frequency, Denies dysuria and Denies urinary urgency Musc Details: Had a bone density test done before 2018, normal results per patient Skin/Breast Denies breast pain, Denies breast mass and Denies rash Neuro Reports no additional complaints Psych Reports no additional complaints Endo Denies polydipsia, Denies polyuria and Denies palpitations Davey/Lymph Denies easy bruising Aller/Immun Reports seasonal rhinorrhea Physical exam (Primary Care) Vital Signs: Last Vital Signs Temp 98.3 F 05/15/25 08:45 Pulse 81 05/15/25 08:45 Resp 16 05/15/25 08:45 BP 100/62 05/15/25 08:45 Pulse Ox 98 05/15/25 08:45 Oxygen Delivery Method Room Air 05/15/25 08:45 BMI result Body Mass Index 23.2 Tobacco/Smoking Status: Tobacco use Status Tobacco use date assessed 05/15/25 05/15/25 08:47 Patient Tobacco Use Status Current everyday Tobacco 05/15/25 09:25 e-Cigarette/Vaping Use Former Use 05/15/25 09:25 PHQ-9: PHQ-9 Score PHQ-9: Total score 4 05/24/25 10:51 Depression Screening Interpretation: Negative Thrive Assessment: Date of Thrive Assessment Date Thrive assessed 05/15/25 05/15/25 08:47 Currently or been in a relationship where the following occur: I choose not to answer Const General: comfortable and no acute distress Orientation/consciousness: patient oriented x3 HENMT Mouth: Normal oral and palatal mucosa present, oropharynx normal and moist mucous membranes Eyes General: appearance normal, both eyes and all related structures Neck Neck: Yes full ROM, Yes no lymphadenopathy and Yes supple Chest Breast/axilla inspection: normal inspection of the breasts Breast/axilla palpation: normal palpation of the breasts Resp Effort & Inspection: normal respiratory effort and able to speak in complete sentences Auscultation: clear to auscultation bilaterally Cardio Other: S1-S2 present regular rate and rhythm GI Inspection: Yes normal to inspection Palpation (GI): Soft to palpation, nontender, no guarding and no masses Auscultation: normal bowel sounds General: Yes no CVA tenderness and Yes deferred (sees OBGYN for routine Pap and pelvic exam) Back/Spine/Pelvis Back: no CVA tenderness and No back tenderness Skin General skin exam: no rashes or lesions noted Neuro General: patient oriented x3, gait normal, tone normal, moves all extremities, Normal light touch and pain sensation and no focal motor deficits Extrem General: Yes full ROM, Yes no joint enlargement, Yes no clubbing, cyanosis or edema and Yes normal gait Psych Appearance: grossly normal and well kempt Mental Status: mental status grossly normal Affect: normal affect Attitude: cooperative Thought process: Normal thought process present Coding Level of Care Code Est Pt Prev Care 40-64y(37217) Diagnoses Annual visit for general adult medical examination with abnormal findings Z00.01 Hair thinning L65.9 History of partial thyroidectomy Z90.09 Mild intermittent asthma in adult without complication J45.20 Cigarette smoker one half pack a day or less F17.210 Additional Codes GAYLA-7 Assessment Billing - GAYLA-7 Assessment Tool: GAYLA-7 Assessment 54220 ([id number]) PHQ-9 - 33133 - PHQ-9 Billing: Yes ([id number]) Assessment & Plan Assessment & Plan (1) Annual visit for general adult medical examination with abnormal findings: Code(s): Z00.01 - Encounter for general adult medical examination with abnormal findings Category: Medical Plan: fasting labs ordered. She is up to date on her Pap smear and mammogram. advised to get a colonoscopy at age 43 for colon cancer screening. She is overdue for an eye exam and was encouraged to schedule one. She plans to receive her flu shot and COVID-19 booster at a pharmacy and was advised to ensure it is reported to the state registry. (2) Hair thinning: Code(s): L65.9 - Nonscarring hair loss, unspecified Category: Medical Plan: The patient presents with worsening hair loss over 5 years. Differential includes telogen effluvium from stress or hormonal changes after stopping Depo-Provera, and possible thyroid dysfunction. Plan includes ordering a CBC, complete metabolic panel, vitamin D, and a thyroid panel (TSH and free T4). A referral to dermatology is placed; [facility] was suggested for potentially earlier appointment availability (3) History of partial thyroidectomy: Comment: 1997 Code(s): Z90.09 - Acquired absence of other part of head and neck Category: Surgical Plan: she is s/p right hemithyroidectomy for a benign nodule. Although prior TSH levels have been within the normal range, they will be rechecked as part of the workup for hair loss to ensure her remaining thyroid is functioning adequately (4) Mild intermittent asthma in adult without complication: Code(s): J45.20 - Mild intermittent asthma, uncomplicated Category: Medical Plan: Continue albuterol as needed. Patient planning to get a flu shot at the pharmacy. (5) Cigarette smoker one half pack a day or less: Code(s): F17.210 - Nicotine dependence, cigarettes, uncomplicated Category: Social Hx Plan: The patient is actively attempting to quit smoking by transitioning from cigarettes to a vape, with the goal of ultimately stopping all nicotine products. This plan is supported, given her intolerance to prior pharmacotherapy trials with Chantix and Wellbutrin. Orders: Orders Triiodothyronine T3 Free 05/15/25 Z90.09 - Acquired absence of other part of head and neck, Z86.39 - Personal history of other endocrine, nutritional and metabolic disease, J45.20 - Mild intermittent asthma, uncomplicated, L65.9 - Nonscarring hair loss, unspecified, Z13.220 - Encounter for screening for lipoid disorders, Z13.1 - Encounter for screening for diabetes mellitus Free T4 (Free Thyroxine) 05/15/25 Z90.09 - Acquired absence of other part of head and neck, Z86.39 - Personal history of other endocrine, nutritional and metabolic disease, J45.20 - Mild intermittent asthma, uncomplicated, L65.9 - Nonscarring hair loss, unspecified, Z13.220 - Encounter for screening for lipoid disorders, Z13.1 - Encounter for screening for diabetes mellitus Lipid Panel 05/15/25 Z90.09 - Acquired absence of other part of head and neck, Z86.39 - Personal history of other endocrine, nutritional and metabolic disease, J45.20 - Mild intermittent asthma, uncomplicated, L65.9 - Nonscarring hair loss, unspecified, Z13.220 - Encounter for screening for lipoid disorders, Z13.1 - Encounter for screening for diabetes mellitus Comprehensive [place]. Panel Fast 05/15/25 Z90.09 - Acquired absence of other part of head and neck, Z86.39 - Personal history of other endocrine, nutritional and metabolic disease, J45.20 - Mild intermittent asthma, uncomplicated, L65.9 - Nonscarring hair loss, unspecified, Z13.220 - Encounter for screening for lipoid disorders, Z13.1 - Encounter for screening for diabetes mellitus Complete Blood Count Auto Diff 05/15/25 Z90.09 - Acquired absence of other part of head and neck, Z86.39 - Personal history of other endocrine, nutritional and metabolic disease, J45.20 - Mild intermittent asthma, uncomplicated, L65.9 - Nonscarring hair loss, unspecified, Z13.220 - Encounter for screening for lipoid disorders, Z13.1 - Encounter for screening for diabetes mellitus Thyroid Stimulating Hormone 05/15/25 Z90.09 - Acquired absence of other part of head and neck, Z86.39 - Personal history of other endocrine, nutritional and metabolic disease, J45.20 - Mild intermittent asthma, uncomplicated, L65.9 - Nonscarring hair loss, unspecified, Z13.220 - Encounter for screening for lipoid disorders, Z13.1 - Encounter for screening for diabetes mellitus Vitamin D 25-OH Total 05/15/25 Z90.09 - Acquired absence of other part of head and neck, Z86.39 - Personal history of other endocrine, nutritional and metabolic disease, J45.20 - Mild intermittent asthma, uncomplicated, L65.9 - Nonscarring hair loss, unspecified, Z13.220 - Encounter for screening for lipoid disorders, Z13.1 - Encounter for screening for diabetes mellitus Referrals Dermatology Referral L65.9 - Nonscarring hair loss, unspecified
== END 2025-05-15 10:07 | disposition home or self-care (01) ==
LOC: HO.HMCC 08:20
PROVIDERS: PCP Internal Medicine; Visit Provider Internal Medicine
DX: Z00.01 Encounter for general adult medical examination with abnormal findings (principal); L65.9 Nonscarring hair loss, unspecified; Z90.09 Acquired absence of other part of head and neck; J45.20 Mild intermittent asthma, uncomplicated; F17.210 Nicotine dependence, cigarettes, uncomplicated

== ENCOUNTER → 2025-05-15 08:20 | Outpatient (BNVA) | payer BC, SELFPAY | PROVIDERS: PCP Internal Medicine; Visit Provider Internal Medicine | DX: Z00.01 Encounter for general adult medical examination with abnormal findings (principal); J45.20 Mild intermittent asthma, uncomplicated; L65.9 Nonscarring hair loss, unspecified; F17.210 Nicotine dependence, cigarettes, uncomplicated; Z90.09 Acquired absence of other part of head and neck | CPT/HCPCS: 96127 ==

== ENCOUNTER 2025-06-16 07:54 | Outpatient (REF) | payer BC, SELFPAY ==
--- OUTSIDE RECORDS SUMMARY | 2025-06-16 08:01 | XMS_ITS | Encounter Summary ---
Author Organization [facility] Address [address] [place] [address] Phone Care Team Providers Care Topstitcher Lockstitch Name Role Phone Griselda Kramer MD Primary Care Provider Encounter Details Date Type Department Care Team (Late st Contact Info) Description 04/15/2022 Procedure Pass [place] Admitting Dept - Virtual Department [address] [place] [address] Social History Tobacco Use Types Packs/Day Years Used Date Smoking Tobacco: Every Day Cigarettes 0.7 28.9 Started: 1996 Smokeless Tobacco: Never Alcohol Use [...] on filedocumented in this encounter Care Teams Topstitcher Lockstitch Relationship Specialty Start Date End Date Griselda Kramer MD [address] [facility] [address] [place] [address] PCP - General Internal Medicine 11/17/21 documented as of this encounter Additional Source Comments The information contained in this document represents components of the legal health record. It is not the complete legal health record.[facility]
--- OUTSIDE RECORDS SUMMARY | 2025-06-16 08:01 | XMS_ITS | Clinical Summary ---
Author Organization [facility] Address [address] [facility] [address] [place] [address] Phone Care Team Providers Care Justowriter Operator Name Role Phone Griselda Kramer MD [...] this topic Medical Devices Implanted Type Area Die Sinking Machine Operator Device Identifier Shelf Expiration Date Model / Serial / Lot Clip Clip Neck Description:From partial thy roidectomy Insurance [address] [place] [address] OUT [facility] PPO [address] [place] [id number] [facility] OUT OF [facility] PPO [employer] [place] OUT OF STATE PPO ER [address] [place] [phone] [employer] OUT OF STATE PPO TRAIL[address] [place] [id number] [place] OUT OF STATE PPO [address] [place] [id number] [place] OUT OF STATE PPO [address] [place] [id number] [place] OUT OF STATE PPO [address] [place] [id number] [place] OUT OF STATE PPO BLUE [place] PPO Advance Directives For more information, please contact: [phone] (9AM - 5PM [facility], Monday-Monday) * Full Code (Latest Code Status on File) Date Activated Date Inactivated Comments 04/15/2022 9:28 AM Question Answer Comments Code Status Confirmed With: Patient Care Teams Justowriter Operator Relationship Specialty Start Date End Date Griselda Kramer MD [facility] [address] [place] [id number] PCP - General Internal Medicine 11/17/21 Additional Source Comments The information contained in this document represents components of the legal health record. It is not the complete legal health record.[facility]
[2025-06-16 10:47] LABS: MANUAL DIFF FLAG NO
[2025-06-16 11:23] LABS: Hematocrit 47.0 % (37.0-47.0); Hemoglobin 15.7 g/dl (12.0-16.0); Imm Gran Abs Auto 0.03 X10*3/uL (0.00-0.03); Imm Gran Pct Auto 0.3 % (0.0-0.4); Lymphocytes Absolute Auto 1.9 X10*3/uL (1.2-4.9); Mean Corpuscular HGB Conc 33.4 g/dl (31.0-35.0); Mean Corpuscular Hemoglobin 30.5 pg (27.0-33.0); Mean Corpuscular Volume 91.4 fL (80.0-98.0); NRBC Abs Auto 0.000 X10*3/uL (0.0-0.012); NRBC Pct Auto 0.0 /100WBC (0.0-0.2); Platelet Count 293 X10*3/uL (160-400); Red Blood Count 5.14 X10*6/uL (4.20-5.50); White Blood Count 8.9 X10*3/uL (4.8-10.8)
[2025-06-16 11:45] LABS: Alanine Aminotransferase 22 U/L (0-31); Albumin Level 4.8 g/dL (3.5-5.0); Alkaline Phosphatase 55 U/L (39-117); Anion Gap 9 (12-20); Aspartate Amino Transferase 26 U/L (5-31); Blood Urea Nitrogen 11 mg/dL (9-16); Calcium 9.1 mg/dL (8.4-10.2); Carbon Dioxide 26 mmol/L (22-29); Chloride 107 mmol/L (96-108); Cholesterol 160 mg/dL (<200); Estimated Glomerular Filt Rate > 60; Free T4 (Free Thyroxine) 0.93 ng/dL (0.71-1.85); HDL Cholesterol 54 mg/dL (>40); Potassium 3.9 mmol/L (3.3-5.1); Sodium 138 mmol/L (135-145); Thyroid Stimulating Hormone 0.31 uIU/mL (0.32-4.0); Total Protein 7.3 g/dL (6.5-8.0); Triglycerides 65 mg/dL (<150)
== END 2025-06-16 07:55 | disposition home or self-care (01) ==
LOC: HO.HMGCLDS 07:54
PROVIDERS: PCP Internal Medicine; Visit Provider Internal Medicine
DX: Z13.220 Encounter for screening for lipoid disorders (principal); Z13.1 Encounter for screening for diabetes mellitus; J45.20 Mild intermittent asthma, uncomplicated; L65.9 Nonscarring hair loss, unspecified; Z90.09 Acquired absence of other part of head and neck; Z86.39 Personal history of other endocrine, nutritional and metabolic disease; Z13.6 Encounter for screening for cardiovascular disorders; Z13.21 Encounter for screening for nutritional disorder
CPT/HCPCS: 36415; 80053; 80061; 82306; 84439; 84443; 84481; 85025

== ENCOUNTER 2025-07-01 08:03 | Outpatient (AMB) | payer BC, SELFPAY ==
[2025-07-01 08:05] VITALS: BP 118/70; PULSE 81; TEMP 36.9; O2SAT 100; BMI 24.2
--- NOTE | 2025-07-01 08:05 | AM.OFFWIN_ITS ---
Intake Vital Signs 07/01/25 08:05 Height 5 ft 6 in Weight 150 lb BMI 24.2 BP 118/70 Blood Pressure Location Rt brachial Position Sitting Pulse 81 Pulse Source Pulse Oximeter Temp 98.5 F Temp Source Oral Pulse Oximetry (%) 100 Oxygen Delivery Method Room Air Intake Visit Reasons: EP-rt side face swollen Intake Note: Patient presents c/o right lower jaw swollen related to a possible abscess x3 days. Patient Tobacco Use Status: Current everyday Tobacco user Allergies Sulfa (Sulfonamide Antibiotics) Allergy (Severe, Verified 07/01/25 08:10) Swelling cefaclor (From Ceclor) Allergy (Verified 07/01/25 08:10) Unknown Red 40 Allergy (Unknown, Uncoded 07/01/25 08:10) unknown HPI HPI Comments History of Present Illness Details History of Present Illness - The patient is a 39-year-old female pr esenting with facial swelling and pain in the right lower jaw. - She first noticed the swelling on evening, and the associated pain began the night before the visit. - The pain is localized and does not inv olve the jaw joint. - She does not have a broken tooth that she knows of. - She is a smoker. - Her known allergies include sulfa anti biotics, C-chlor, and red food dye 40. - She has a history of developing yeast infections when taking antibiotics from the -cillin class. - She denies fever, chills, VAUGHN, sore thr oat, CP, SOB, nausea or vomiting. Physical Exam General: Cooperative, healthy appearing, comfortable, no acute distress and well developed Head: Normal to inspection Face and sinus: Swelling noted on the right lower face along the jawline. Mouth/Throat: No halitosis noted. Tongue is normal and midline. Uvula is midline. Oropharynx is pink with no exudates noted. Tonsils not swollen. Dental caries noted on the left lower molar. Gingiva is pink. No discharge noted. Neck: Normal visual inspection and full ROM. No lymphadenopathy noted. Respiratory: Normal respiratory effort and able to speak in complete sentences. Clear to auscultation bilaterally. No w/r/r noted. Cardiovascular: Regular rate and rhythm. Normal S1 and S2. Skin: No rashes or lesions noted [facility] Medical History (Updated 05/24/25 @ 11:11 by Griselda Kramer MD) Cigarette smoker one half pack a day or less Hair thinning Mild intermittent asthma in adult without complication Not ready to quit smoking Loose body in joint of multiple sites Polyarthralgia Snoring Sleeping difficulties Sleep walking and eating Excessive daytime sleepiness Family history of ulcerative colitis IBS (irritable bowel syndrome) Heartburn Tendinitis of right wrist Interstitial cystitis Upper respiratory tract infection Cyst, breast Severe dysmenorrhea Mild intermittent asthma History of abnormal cervical Pap smear Seasonal allergic rhinitis History of thyroid nodule Surgical History (Updated 05/15/25 @ 09:06 by Griselda Kramer MD) History of right salpingo-oophorectomy H/O exploratory laparotomy History of colposcopy History of partial thyroidectomy Family History Father Colitis Mother Asthma Sister No problems noted. Paternal Grandfather Kidney malignancy Paternal Grandmother Primary cancer of kidney Maternal Grandfather FH: prostate cancer Lung cancer Skin cancer Paternal Uncle Crohn disease Maternal Uncle No problems noted. 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 Cognitive needs: No Hearing needs: No Vision needs: Yes Review of Systems Const All systems reviewed & are unremarkable except as noted in HPI and below Physical Exam Vital Signs: Last Vital Signs Temp 98.5 F 07/01/25 08:05 Pulse 81 07/01/25 08:05 BP 118/70 07/01/25 08:05 Pulse Ox 100 07/01/25 08:05 Oxygen Delivery Method Room Air 07/01/25 08:05 BMI result Body Mass Index 24.2 Assessment & Plan Assessment & Plan (1) Facial swelling: Code(s): R22.0 - Localized swelling, mass and lump, head (2) Dental abscess: Code(s): K04.7 - Periapical abscess without sinus Plan Most likely abscess vs caries plan - tylenol or motrin as needed - diet as tolerated - rinse mouth after eating or smoking - augmentin BID for 7 days - needs to f/u with her dentist Medications: New amoxicillin-pot clavulanate 035-125 mg 1 tab PO Q12H 14 tabs 0RF fluconazole may repeat second dose 72 hrs after first dose if symptoms persist 150 mg PO Q3D 2 tabs 0RF Coding Level of Care Code Est Pt Level 3 (87144) Diagnoses Facial swelling R22.0 Dental abscess K04.7
--- OUTSIDE RECORDS SUMMARY | 2025-07-01 08:06 | XMS_ITS | Clinical Summary ---
Author Organization [facility] Address [address] [place] [address] Phone Care Team Providers Care Finance Effectiveness Manager Name Role Phone Griselda Kramer MD Primary [...] Date Smoking Tobacco: Every Day Cigarettes 0.8 29 Started: 1996 Smokeless Tobacco: Never Alcohol Use [...] this topic Medical Devices Implanted Type Area Shaker Flatwork Device Identifier Shelf Expiration Date Model / Serial / Lot Clip Clip Neck Description:From partial thy roidectomy Insurance [address] [place] [address] OUT [facility] PPO [address] [place] [id number] [facility] OUT OF [facility] PPO [employer]UE [place]OSS OUT OF STATE PPO ER [address] [place] [id number] [employer] OUT OF STATE PPO [address] [place] [id number] [employer] OUT OF STATE PPO [address] [place] [phone] [employer] OUT OF STATE PPO [address] [place] [phone] [employer] OUT OF STATE PPO [address] [place] [id number] [employer] OUT OF STATE PPO BLUE [place] OUT OF STATE PPO [address] [id number] Advance Directives For more information, please contact: [phone] (9AM - 5PM [facility], Monday-Monday) * Full Code (Latest Code Status on File) Date Activated Date Inactivated Comments 04/15/2022 9:28 AM Question Answer Comments Code Status Confirmed With: Patient Care Teams Finance Effectiveness Manager Relationship Specialty Start Date End Date Griselda Kramer MD [address] [facility] [place] [address] PCP - General Internal Medicine 11/17/21 Additional Source Comments The information contained in this document represents components of the legal health record. It is not the complete legal health record.[facility]
--- OUTSIDE RECORDS SUMMARY | 2025-07-01 08:06 | XMS_ITS | Encounter Summary ---
Author Organization [facility] Address [address] [place] [address] Phone Care Team Providers Care Sole Blacker Name Role Phone Griselda Kramer MD Primary Care Provider Encounter Details Date Type Department Care Team (Late st Contact Info) Description 04/15/2022 Procedure Pass OR Admitting Dept - Virtual Department [address] [place] [address] Social History Tobacco Use Types Packs/Day Years [...] on filedocumented in this encounter Care Teams Sole Blacker Relationship Specialty Start Date End Date Griselda Kramer MD [address] [facility] [address] [place] [id number] PCP - General Internal Medicine 11/17/21 documented as of this encounter Additional Source Comments The information contained in this document represents components of the legal health record. It is not the complete legal health record.[facility]
== END 2025-07-01 08:36 | disposition home or self-care (01) ==
PROVIDERS: PCP Internal Medicine; Visit Provider Physician Assistant Medical
DX: R22.0 Localized swelling, mass and lump, head (principal); K04.7 Periapical abscess without sinus